=== PATIENT | female | born 1995 ===

== ENCOUNTER 2018-08-08 22:32 | Emergency (ER) | payer SELFPAY ==
[2018-08-08 22:40] VITALS: BP 113/75; PULSE 86; RESP 18; TEMP 98.2; O2SAT 99
--- NOTE | 2018-08-08 23:14 | ED PDOC ---
Lower Extremity Pain/Injury Time Seen by Provider: 08/08/18 22:50 Chief Complaint (Nursing): Lower Extremity Problem/Injury Chief Complaint (Provider): Left great toe pain x 2 months History Per: Patient History/Exam Limitations: no limitations Onset/Duration Of Symptoms: Days Current Symptoms Are (Timing): Still Present Additional Complaint(s): 23 yo female wiht no medical problems presents for evaluation of left lateral great toe pain. Pt states she initially cut the skin when cutting toe nails. States she than dropps something on the area. Pt reports increased pain and swelling of area around nail with intermittent drainage. No fever/chills. Past Medical History Reviewed: Historical Data, Nursing Documentation, Vital Signs Vital Signs: Last Vital Signs Temp 98.2 F 08/08/18 22:40 Pulse 86 08/08/18 22:40 Resp 18 08/08/18 22:40 BP 113/75 08/08/18 22:40 Pulse Ox 99 08/08/18 22:40 Primary Care Provider: FAMILY PROVIDER,NO - Medical History PMH: No Chronic Diseases - Surgical History Surgical History: No Surg Hx - Family History Family History: States: No Known Family Hx - Living Arrangements Living Arrangements: With Family - Social History Current smoker - smoking cessation education provided: No - Home Medications Home Medications: Ambulatory Orders Medication Instructions Recorded Cephalexin [Keflex] 500 mg PO BID #14 capsule 08/08/18 - Allergies Allergies/Adverse Reactions: Allergies Allergy/AdvReac Type Severity Reaction Status Date / Time No Known Allergies Allergy Verified 08/08/18 22:39 Review of Systems ROS Statement: Except As Marked, All Systems Reviewed And Found Negative Constitutional: Negative for: Fever, Chills Respiratory: Negative for: Cough, Shortness of Breath Gastrointestinal: Negative for: Nausea, Vomiting, Abdominal Pain Musculoskeletal: Positive for: Foot Pain Skin: Positive for: Other Physical Exam - Reviewed Nursing Documentation Reviewed: Yes Vital Signs Reviewed: Yes - Physical Exam Appears: Positive for: Well, Non-toxic, No Acute Distress Head Exam: Positive for: ATRAUMATIC, NORMAL INSPECTION, NORMOCEPHALIC Skin: Positive for: Warm. Negative for: Normal Color ((+) ingrown toe nail, left lateral great toe with granulated tissue. ) Eye Exam: Positive for: Normal appearance ENT: Positive for: Normal ENT Inspection Neck: Positive for: Normal, Painless ROM Cardiovascular/Chest: Positive for: Regular Rate, Rhythm Respiratory: Positive for: CNT, Normal Breath Sounds Gastrointestinal/Abdominal: Positive for: Normal Exam, Soft Back: Positive for: Normal Inspection Extremity: Positive for: Normal ROM Neurological/Psych: Positive for: Awake, Alert, Normal Tone - ECG O2 Sat by Pulse Oximetry: 99 Medical Decision Making Medical Decision Making: Discussed warm soaks. Pt did not want motrin in ER for pain. Discussed f/u with podiatry. Disposition - Clinical Impression Clinical Impression: Ingrown left big toenail - Patient ED Disposition Is Patient to be Admitted: No Counseled Patient/Family Regarding: Diagnosis, Need For Followup, Rx Given - Disposition Referrals: Podiatry Clinic [Outside] Disposition: Routine/Home Disposition Time: 23:16 Condition: STABLE Prescriptions: Cephalexin [Keflex] 500 mg PO BID #14 capsule Instructions: Ingrown Toenail, Ingrown Toenail Removal
== END 2018-08-08 23:35 | disposition home or self-care (01) ==
LOC: H.ER 22:32
DX: L60.0 Ingrowing nail (principal)